=== PATIENT | male | born 1935 | race Caucasian/White ===

== ENCOUNTER 2019-03-26 16:49 | Emergency (ER) | payer MEDICARE ==
[2019-03-26 16:56] VITALS: BP 146/87
== END 2019-03-26 18:24 | disposition left against medical advice (07) ==
LOC: ED 16:49
DX: Z53.21 Procedure and treatment not carried out due to patient leaving prior to being seen by health care provider (principal)
CPT/HCPCS: 99282

== ENCOUNTER 2019-03-26 21:04 | Emergency (ER) | payer MEDICARE ==
--- NOTE | 2019-03-26 23:58 | ED ---
GI/ HPI - HPI Summary HPI Summary: 83-year-old male presents with suprapubic catheter plugged. He states it has not been draining today. He has a suprapubic catheter for 2 years. Is from [place]. Denies any fevers or chills. Denies any bowel pain. He states he feels fine. He states he gets it changed every 6 weeks. He states lasted changed 4 weeks ago. - History of Current Complaint Chief Complaint: EDUrogenitalProblems Time Seen by Provider: 03/26/19 22:59 Stated Complaint: PLUGGED CATHETER TUBE PER PT Pain Intensity: 0 - Allergy/Home Medications Allergies/Adverse Reactions: Allergies Allergy/AdvReac Type Severity Reaction Status Date / Time No Known Allergies Allergy Verified 03/26/19 21:07 PMH/Surg Hx/FS Hx/Imm Hx Endocrine/Hematology History: Denies: Hx Anticoagulant Therapy Cardiovascular History: Reports: Hx Hypertension Infectious Disease History: No Infectious Disease History: Denies: Traveled Outside the [place] in Last 30 Days - Family History Known Family History: Positive: Non-Contributory - Social History Alcohol Use: Rare Substance Use Type: Reports: None Smoking Status (MU): Never Smoked Tobacco Review of Systems Negative: Fever Negative: Chest Pain Negative: Shortness Of Breath Positive: Other - suprapubic catheter issue All Other Systems Reviewed And Are Negative: Yes Physical Exam Triage Information Reviewed: Yes Vital Signs On Initial Exam: Initial Vitals Temp Pulse Resp BP Pulse Ox 98.7 F 56 15 96/67 98 03/26/19 21:06 03/26/19 21:06 03/26/19 21:06 03/26/19 21:06 03/26/19 21:06 Vital Signs Reviewed: Yes Appearance: Positive: Well-Appearing Skin: Positive: Warm, Dry Head/Face: Positive: Normal Head/Face Inspection Eyes: Positive: Normal, Conjunctiva Clear ENT: Positive: Pharynx normal Respiratory/Lung Sounds: Positive: Clear to Auscultation, Breath Sounds Present Cardiovascular: Positive: Normal, RRR Abdomen Description: Positive: Nontender, Soft, Other: - suprapubic catheter in place Bowel Sounds: Positive: Present Musculoskeletal: Positive: Normal Neurological: Positive: Normal Psychiatric: Positive: Normal Diagnostics - Vital Signs Vital Signs Temp Pulse Resp BP Pulse Ox 03/26/19 21:06 98.7 F 56 15 96/67 98 - Laboratory Lab Statement: Any lab studies that have been ordered have been reviewed, and results considered in the medical decision making process. GIGU Course/Dx - Course Course Of Treatment: 83-year-old male presents with suprapubic catheter plugged. He states it has not been draining today. He has a suprapubic catheter for 2 years. Is from [place]. Denies any fevers or chills. Denies any bowel pain. He states he feels fine. He states he gets it changed every 6 weeks. He states lasted changed 4 weeks ago. On exam has a suprapubic catheter in place. Removed catheter and placed an 18 German without any difficulty using sterile technique. Told to follow up with urologist as scheduled. Patient understands agrees plan. - Diagnoses Differential Diagnoses - Male: Urinary Tract Infection, Other - catheter change Provider Diagnoses: Suprapubic catheter Discharge ED - Sign-Out/Discharge Documenting (check all that apply): Patient Departure Patient Received Moderate/Deep Sedation with Procedure: No - Discharge Plan Condition: Good Disposition: HOME Patient Education Materials: How to Care for Your Suprapubic Catheter (DC) Referrals: No Primary Care Phys,NOPCP [Primary Care Provider] - Additional Instructions: follow up with urology as scheduled Return to ED if develop any new or worsening symptoms - Billing Disposition and Condition Condition: GOOD Disposition: Home
[2019-03-27 00:39] VITALS: BP 131/80
== END 2019-03-27 00:30 | disposition home or self-care (01) ==
LOC: ED 21:04
DX: T83.098A Other mechanical complication of other urinary catheter, initial encounter (principal); I10 Essential (primary) hypertension
CPT/HCPCS: 51702; 99282